=== PATIENT | male | born 2000 | race Caucasian/White ===

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

== ENCOUNTER 2025-06-30 11:57 | Emergency (ER) | payer MEDICAID, SELFPAY ==
[2025-06-30 12:01] VITALS: BP 146/81; PULSE 58; RESP 18; TEMP 36.1; O2SAT 98
--- NOTE | 2025-06-30 12:37 | DI.MRI_ITS ---
Exam(s) MR LOWER JOINT RT WO EXAM: MR LOWER JOINT RT WO CLINICAL HISTORY: sup/ant pain, unable to extend, trauma, poss. quad. TECHNIQUE: Multiplanar multisequence MRI was performed. COMPARISON: CR XR KNEE RT 4V AP,LAT,JOAQUINA,PAT from 06/30/2025 FINDINGS: BONES: There is no fracture or contusion pattern. JOINTS: A small joint effusion is present. Articular cartilage: Patellofemoral joint: Articular cartilage is unremarkable. Medial femoral tibial joint: Articular cartilage is unremarkable. Lateral femoral tibial joint: Articular cartilage is unremarkable. LIGAMENTS/TENDONS: Anterior Cruciate: Unremarkable. Posterior Cruciate: Unremarkable. Medial Collateral:Unremarkable. Lateral Collateral ligament complex: Unremarkable. Extensor mechanism: Unremarkable. Medial retinaculum: Unremarkable. Lateral retinaculum: Unremarkable. Popliteus: Unremarkable. MENISCI: The medial meniscus is unremarkable. The lateral meniscus is unremarkable. MUSCLES: Edema in the distal, anterior vastus medialis muscle consistent with muscle tear. No evidence of retraction. SOFT TISSUES: Soft tissue swelling anterior to quadriceps tendon. IMPRESSION: Tear of the anterior, distal vastus medialis muscle. No evidence of quadriceps tendon tear or patellar retinacular tear. Findings called to ER provider. DATA REPOSITORY:
--- NOTE | 2025-06-30 12:58 | DI.RAD_ITS ---
Exam(s) XR KNEE RT 4V AP,LAT,JOAQUINA,PAT EXAM: XR KNEE RT 4V AP,LAT,JOAQUINA,PAT CLINICAL HISTORY: struck sup/ant knee, unable to extend. TECHNIQUE: 2D digital imaging was performed. Three views. COMPARISON: No exams were available for comparison FINDINGS: BONES: No acute fracture is present. No bony destructive lesion is seen. JOINTS: The knee is normally aligned. No joint effusion is seen. SOFT TISSUE: Anterior soft tissue swelling. IMPRESSION: Anterior soft tissue swelling. No evidence of fracture or joint effusion. DATA REPOSITORY: RADIATION DOSE DELIVERED:
--- NOTE | 2025-06-30 13:01 | ED.GENADUL_ITS ---
Discharge Plan Disposition Patient Disposition: Eloped Condition: Fair Discharge Details Clinical Impression: Acute pain of right knee, Muscle tear Primary Care Provider: Neisha Claros ED Provider: Kasia Clark Home Meds and New Rx's Prescriptions: No Action No Known Home Meds HPI General Date/Time Provider Initiated Documentation: 06/30/25 12:11 . Limitations to Documentation: no limitations . Information obtained by: patient, family (significant other) and RN notes reviewed . History of Present Illness 24 year old M presents to the emergency department with the chief complaint of right knee pain, described as severe, Quality is described as stabbing, and is localized to the right and lower extremity. Patient reports no radiation. Patient started experiencing this day(s) (1) and it has been constant. Immobilization improves symptom(s), Movement worsens symptoms . Patient notes no other symptoms.. Patient did receive the following treatments prior to arrival, none Related Data Home Medications Medication Instructions Recorded Confirmed Unknown [No Known Home Meds] 06/30/25 1 08/30/24 Allergies Allergy/AdvReac Type Severity Reaction Status Date / Time acetaminophen AdvReac Intermediate Anaphylaxis Verified 06/30/25 12:06 General Stated Complaint: Orthopedic GINA: 4 Review of Systems Constitutional Constitutional: Reports as per HPI, Denies fever(s) and Denies weakness Cardiovascular Cardiovascular: Reports as per HPI Respiratory Respiratory: Reports as per HPI and Denies cough Musculoskeletal Musculoskeletal: Reports as per HPI and Denies tingling Integumentary/Breasts Skin/Breast: Reports as per HPI, Denies rash and Denies wounds Neurologic Neurologic: Reports as per HPI, Denies tingling, Denies paresthesias and Denies weakness Exam Const General: cooperative, healthy appearing, comfortable, no acute distress, well developed and well groomed Nutritional Appearance: average body habitus and well nourished Orientation: alert and awake Resp Effort & Inspection: normal respiratory effort, able to speak in complete sentences and no respiratory distress Cardio Rate: regular rate Rhythm: regular rhythm Skin General skin exam: no rashes or lesions noted Lesions: no lesions Rashes: no rashes Trauma: no lacerations or abrasions Neuro General: patient alert and patient awake Cognition: normal cognition Speech: speech normal Gait: antalgic Motor: muscle tone normal throughout Sensory Exam: no sensory deficits noted Extrem Knee images: 2 1. Area of discomfort and localized swelling. Patient has 2+ distal pulses. Sensation is intact. He has good range of motion of the ankle, no indication of knee dislocation. Patient is able to flex it to 90, passive able to get to extension. Struggles with straight leg raise, unable to complete this. No palpable patellar defect. He is ligamentously intact with varus and valgus tress testing as well as Williams exam. Posterior drawer is intact with anterior drawer is difficult as patient has had guarding and is not able to tolerate this exam. No joint effusion, symptomatic soft tissue swelling directly superior to the patella Course Vital Signs Vital signs: Vital Signs Temperature 36.1 C L 06/30/25 12:01 Pulse 58 L 06/30/25 12:01 Respiratory Rate 18 06/30/25 12:01 Blood Pressure 146/81 H 06/30/25 12:01 Pulse Oximetry 98 06/30/25 12:01 Temperature 36.1 C L 06/30/25 12:01 Pulse 58 L 06/30/25 12:01 Respiratory Rate 18 06/30/25 12:01 Blood Pressure 146/81 H 06/30/25 12:01 Pulse Oximetry 98 06/30/25 12:01 Pain Level 10 06/30/25 12:23 Medical Decision Making Patient is a pleasant 24-year-old gentleman without any significant past medical history, brought in by his , with chief complaint of right knee pain. He reports that yesterday was playing basketball with some friends when he slid along the floor on his knees and crashed with his right knee leading into a brick wall. States that he immediately had severe pain with the pain seems to have worsened throughout time. States that he has been elevating and icing and for this reason some of the swelling seems to have just burst. States while he has been able to be ambulatory, has been primarily nonweightbearing on the right lower extremity due to pain but has been more hopping. He denies any other injury at the time of the incident. He did not strike his head. Denies any loss of conscious. Denies any numbness or tingling. No previous surgery or injury to this knee. On exam, patient appears nontoxic. Resting comfortably no acute distress. He is hemodynamically stable. He is 2+ distal pulses. Is good range of motion of the ankle. Calf is soft and nontender. No pain over the fibular head. He has no pain with palpation about the ankle. No indication to suggest a knee dislocation given the neurovascular exam at this point. Is ligamentously intact with varus valgus stress testing. He is able to tolerate the posterior drawer testing with anterior drawer causes too much pain and patient has immediate movement with attempt at this. Did not appreciate any intra-articular joint effusion but he does have soft tissue swelling that is focal just superior to the patella. This area is fairly soft and swollen. When he stands, I are able to note a slight defect in this region. Given location of pain as well as patient's inability to straight leg raise, my primary concerns for quad tendon rupture. Will obtain an x-ray. Patient declines any analgesics. Will also reach out to orthopedics regarding these concerns as this could potentially be a surgical case. X-ray reviewed by radiologist. No evidence of fracture or joint effusion but they do note anterior soft tissue swelling. X-rays reviewed by myself as well as Dr. Lance as well. Dr. Angel was able to evaluate the patient and was able to get him to engage the quads and have some resultant patellar movement. For this reason, he is less concern for full- thickness or complete quadriceps tendon rupture. However, he did recommend MRI as patient may have suffered a partial or other injury necessitating possible surgical intervention. Patient does report Dr. Lance that he does not want to have any type of surgery regardless of the noted injury. Prior to receiving the MRI report, patient needed to leave. While was working to get the MRI report, patient eloped from the department without knowing his diagnosis. We did attempt to place the patient in a knee immobilizer as well as crutches and patient declined this and eloped prior to these being applied as well. I did not have a chance to speak with the patient during the time of elopement. MRI was reviewed by radiologist, while the quadriceps tendon is intact, patient does have a tear of the anterior distal vastus medialis muscle. I certainly will explain the patient's symptoms. Patient was already continuing with appropriate elevation rest. Called patient, generic voice message was reached, asked to call back. If patient calls back, will discuss results of MRI and treatment plan. [facility] All Active Problems (Updated 06/30/25 @ 15:23 by INEZ Strickland) Muscle tear (Acute) Acute pain of right knee (Acute) Social History Smoking/Tobacco Use Status: Current every day Tobacco Type: e-cigarettes Smoking risk assessment performed?: Yes Alcohol Intake: current Alcohol Intake frequency: holidays/special occasions only Drug use: Occasionally Substance use type: marijuana Housing: house Do you feel safe at home: Yes Do you feel safe in your relationship?: Yes
== END 2025-06-30 15:23 | disposition left against medical advice (07) ==
PROVIDERS: Emergency Provider Physician Assistant; PCP Nurse Practitioner Family
DX: S83.241A Other tear of medial meniscus, current injury, right knee, initial encounter; W22.8XXA Striking against or struck by other objects, initial encounter; Y93.67 Activity, basketball; Z53.20 Procedure and treatment not carried out because of patient's decision for unspecified reasons; M25.561 Pain in right knee
CPT/HCPCS: 99283 ×2; 73721; 73564

== ENCOUNTER 2025-07-01 13:05 | Emergency (ER) | payer MEDICAID, SELFPAY ==
[2025-07-01 13:10] VITALS: BP 101/67; PULSE 59; RESP 20; TEMP 36.7; O2SAT 96
--- NOTE | 2025-07-01 13:31 | W.ED.GENAD ---
Discharge Plan Disposition Patient Disposition: Home Condition: Stable Discharge Details Clinical Impression: Muscle tear Primary Care Provider: Neisha Claros ED Provider: Dario Caba Home Meds and New Rx's Prescriptions: No Action No Known Home Meds Discharge Instructions Additional Instructions: You were seen in the emergency department for MRI results after leaving AGAINST MEDICAL ADVICE yesterday, your MRI shows that you have a muscle tear of the vastus medialis muscle of the quadriceps. Please use therapeutic dosing of Tylenol (acetamenophen) & Advil (ibuprofen) in an alternating fashion as follows: Take 1000mg of Tylenol every 6 hours without missing doses- that is 4 times per day. Penitentiary in between the Tylenol dosings, take 400-600mg of Advil also on a 6 hour schedule, that is also 4 times per day. The daily maximum dosing of Tylenol is 4000mg, and the daily maximum dosing of Advil is 2400mg. This is safe to do for weeks. Please note that some common cold medications & prescription pain medications may contain acetamenophen and you need to read OTC drug labels and factor that in to maximum daily dosings. . Please rest, ice, elevate and use the provided knee immobilizer and crutches, I have placed you on the orthopedics follow-up list you should hear from them by the end of the week if not you can call their number attached to the your paperwork Stand Alone Forms: Portal Information Referrals: [facility] [Provider Group] Neisha Claros [Primary Care Provider, Medicine] Discharge Data Discharge Date/Time-TO BE ENTERED AT DEPARTURE: 07/01/25 13:48 HPI General Date/Time Provider Initiated Documentation: 07/01/25 13:11. HPI Narrative: 24 year-old male presents to ED today by POV/ambulating with a chief complaint of continued pain in right knee and right foot dominant male seen yesterday at left without results with onset 2 days ago from a straining type injury, patient said he had to leave yesterday due to a family emergency. Quality described as pain above the right knee, no radiation to numbness, tingling, redness, lesion, bruising, endorses pain with weightbearing. Severity is described as moderate. Palliating factors include nothing specific attempted. Provoking factors include pain is worsened since being seen yesterday. Patient not anticoagulated. Related Data Home Medications Medication Instructions Recorded Confirmed Unknown [No Known Home Meds] 06/30/25 07/01/25 Allergies Allergy/AdvReac Type Severity Reaction Status Date / Time acetaminophen AdvReac Intermediate Anaphylaxis Verified 07/01/25 13:13 General Stated Complaint: Recheck GINA: 4 Review of Systems All systems reviewed & are unremarkable except as noted in HPI and below Exam Narrative Exam Narrative: GENERAL APPEARANCE: Well-nourished, non-toxic, awake and alert, atraumatic, no acute distress. SKIN: Warm, pink, dry, intact, without rashes/lesions/ulcerations. HEAD: Normocephalic, atraumatic, normal hair distribution for gender/age. EYES: Normal conjunctiva, no exudates on lids/lashes. ENT: Nares patent, no circumoral cyanosis, no facial swelling NECK: Supple, trachea midline, painless cervical ROM. LUNGS/CHEST: Non-labored respirations, normal A/P diameter, symmetrical expansion, no chest wall deformity HEART (CV/PV): No peripheral edema, no JVD. ABDOMEN: Soft, non-distended, no guarding. MSK: Normal ROM, no swelling/deformity to bilateral UEs or LEs, moving all extremities without weakness, no cyanosis, spine midline without tenderness, normal curvature, R LE: range of motion intact to the knee with strength 5/5 in proximal and distal knee with flexion and extension, tenderness in the suprapatellar area, no joint line tenderness, no anterior drawer laxity, Travis negative NEURO: Mental Status AAOx4 - alert to person, place, time, events No facial droop, no forehead involvement. Motor: No focal weakness Sensory: sensation intact to light touch globally. Gait NT. PSYCH: euthymic, cooperative, pleasant, appropriate speech Course Vital Signs Vital signs: Vital Signs Temperature 36.7 C 07/01/25 13:10 Pulse 59 L 07/01/25 13:10 Respiratory Rate 20 07/01/25 13:10 Blood Pressure 101/67 07/01/25 13:10 Pulse Oximetry 96 07/01/25 13:10 Temperature 36.7 C 07/01/25 13:10 Pulse 59 L 07/01/25 13:10 Respiratory Rate 20 07/01/25 13:10 Blood Pressure 101/67 07/01/25 13:10 Blood Pressure Position Sitting 07/01/25 13:10 Pulse Oximetry 96 07/01/25 13:10 Oxygen Delivery Method Room Air 07/01/25 13:10 Oxygen Flow Rate 0 07/01/25 13:10 Medical Decision Making This dictation utilizes [id number] dictation software and may contain unedited grammatical errors. 24 year-old male presents to ED today by POV/ambulating with a chief complaint of continued pain in right knee and right foot dominant male seen yesterday at left without results with onset 2 days ago from a straining type injury, patient said he had to leave yesterday due to a family emergency. Quality described as pain above the right knee, no radiation to numbness, tingling, redness, lesion, bruising, endorses pain with weightbearing. Severity is described as moderate. Palliating factors include nothing specific attempted. Provoking factors include pain is worsened since being seen yesterday. Patients' medical history: Negative, otherwise healthy. Family and social history: Noncontributory. Pertinent exam findings / vital signs include range of motion intact to the knee with strength 5/5 in proximal and distal knee with flexion and extension, tenderness in the suprapatellar area, no joint line tenderness, no anterior drawer laxity, Travis negative. Differential / pathologies of concern include reviewed imaging yesterday patient has tear of anterior distal vastus medialis muscle without evidence of retraction. Diagnostic studies of: - Counseled the patient on his results. Interventions of: - Given knee immobilizer and crutches, patient had Ortho consult yesterday stressed that he does need to continue follow-up with orthopedics. ED Course/Assessment/Plan: 24-year-old male seen yesterday by my colleague Kasia Oneill PA-C with distal thigh pain/knee pain, had gotten x-ray and MRI and left without these results, orthopedics had also been paged out to review. Patient had eloped while this was going on, I counseled the patient that he is a muscle tear without retraction and needs to follow-up with orthopedics, provided knee immobilizer and crutches recommend Tylenol and ibuprofen as well as alternating heat and ice to the area, strict return criteria for any signs of neurovascular compromise. Findings not consistent with fracture or neurovascular compromise. Disposition of Muscle Tear. Patient verbalized understanding of the plan and return to ED criteria and engaged in shared decision making. Medical Records Medical records reviewed: Yes I reviewed the patient's medical records. Imaging Data Radiologic Study: Attestation: I personally reviewed and interpreted this imaging study as follows: Imaging: X-Ray Radiologist's impression: EXAM: XR KNEE RT 4V AP,LAT,JOAQUINA,PAT CLINICAL HISTORY: struck sup/ant knee, unable to extend. TECHNIQUE: 2D digital imaging was performed. Three views. COMPARISON: No exams were available for comparison FINDINGS: BONES: No acute fracture is present. No bony destructive lesion is seen. JOINTS: The knee is normally aligned. No joint effusion is seen. SOFT TISSUE: Anterior soft tissue swelling. IMPRESSION: Anterior soft tissue swelling. No evidence of fracture or joint effusion. Radiologic Study #2: Attestation: I personally reviewed and interpreted this imaging study as follows: Imaging: MRI Radiologist's impression: EXAM: MR LOWER JOINT RT WO CLINICAL HISTORY: sup/ant pain, unable to extend, trauma, poss. quad. TECHNIQUE: Multiplanar multisequence MRI was performed. COMPARISON: CR XR KNEE RT 4V AP,LAT,JOAQUINA,PAT from 06/30/2025 FINDINGS: BONES: There is no fracture or contusion pattern. JOINTS: A small joint effusion is present. Articular cartilage: Patellofemoral joint: Articular cartilage is unremarkable. Medial femoral tibial joint: Articular cartilage is unremarkable. Lateral femoral tibial joint: Articular cartilage is unremarkable. LIGAMENTS/TENDONS: Anterior Cruciate: Unremarkable. Posterior Cruciate: Unremarkable. Medial Collateral:Unremarkable. Lateral Collateral ligament complex: Unremarkable. Extensor mechanism: Unremarkable. Medial retinaculum: Unremarkable. Lateral retinaculum: Unremarkable. Popliteus: Unremarkable. MENISCI: The medial meniscus is unremarkable. The lateral meniscus is unremarkable. MUSCLES: Edema in the distal, anterior vastus medialis muscle consistent with muscle tear. No evidence of retraction. SOFT TISSUES: Soft tissue swelling anterior to quadriceps tendon. IMPRESSION: Tear of the anterior, distal vastus medialis muscle. No evidence of quadriceps tendon tear or patellar retinacular tear. Findings called to ER provider. PFSH All Active Problems (Updated 07/01/25 @ 13:33 by INEZ Myers) Muscle tear (Acute) Muscle tear (Acute) Acute pain of right knee (Acute) Social History Smoking/Tobacco Use Status: Current every day Tobacco Type: e-cigarettes Smoking risk assessment performed?: Yes Alcohol Intake: current Alcohol Intake frequency: holidays/special occasions only Drug use: Occasionally Substance use type: marijuana Housing: house Do you feel safe at home: Yes Do you feel safe in your relationship?: Yes PAWSS Have you Been Recently Intoxicated or Drunk Within the Last 30 days?: No Have you Ever Experienced Previous Episodes of Alcohol Withdrawal?: No Have you ever Experienced Withdrawal Seizures?: No Have you ever Experienced Delirium Tremens(DT)s?: No Have you ever undergone Alcohol Rehabilitation Treatment (i.e, inpt ot outpatient treatment programs)?: No Have you ever Experienced Blackouts?: No Have you ever Combined Alcohol with other Downers within the last 90 days?: No Have you ever Combined Alcohol with any other Substance of Abuse during the last 90 days?: No Positive Blood Alcohol level on Presentation? [PCS.BAL]: No Evidence of Increased Autonomic Activity (i.e. HR>120, tremor, sweating, agitation, nausea)?: No Result: 0
== END 2025-07-01 13:48 | disposition home or self-care (01) ==
PROVIDERS: Emergency Provider Physician Assistant; PCP Nurse Practitioner Family
DX: S83.241D Other tear of medial meniscus, current injury, right knee, subsequent encounter (principal); W22.8XXD Striking against or struck by other objects, subsequent encounter; M25.561 Pain in right knee
CPT/HCPCS: 99282; 99281